=== PATIENT | male | born 1970 | race Caucasian/White ===

== ENCOUNTER 2025-02-15 08:48 | Outpatient (AMB) | payer OTHER, SELFPAY ==
--- NOTE | 2025-02-15 08:50 | A.OFFVIS_ITS ---
Intake Visit Reasons: 4 weeks f/u Allergies No Known Allergies Allergy (Verified 02/14/25 11:03) Medication List - Last Reconciled 02/15/25 by Inna Rivera MD amlodipine 10 mg PO DAILY lisinopril 10 mg PO DAILY multivitamin (Daily-Parth tablet) 1 tab PO DAILY propranolol 20 mg PO BID HPI Comments Details: 54 years old man with hypertension and benign essential tremor. Last time amlodipine was stopped and he was advised to try propranolol for both conditions. He was feeling better after the switch and tremor was better. He was able to hold a drink without spilling. No side effects. [facility] Medical History (Updated 02/15/25 @ 08:52 by Inna Rivera MD) Hypertension Familial tremor Family History (Updated 02/14/25 @ 11:02 by Yanna Sheffield MA) Son Tremor Review of Systems Const Details: Constitutional:?No fever, chills, fatigue, weight loss, or night sweats. HEENT:?No headache, vision changes, hearing loss, nasal congestion, sore throat. Neurological:? Complain of tremor Psychiatric:?No anxiety, depression, mood swings, sleep disturbance, or hallucinations. Endocrine:?No heat/cold intolerance, polydipsia, polyuria, or hair/skin changes. Hematologic/Lymphatic:?No easy bruising, bleeding, or lymphadenopathy. Integumentary (Skin):?No rash, lesions, itching, or color changes. He was also complaining of erectile difficulties but that head started even before starting propranolol. ? Physical Exam Neuro Other: Mental Status: Alert and oriented to person, place, and time. Normal attention. Normal spontaneous speech, fluency, and comprehension. No obvious issues with mood and memory. Affect is appropriate. Cranial Nerves: CN II: Visual gallo full to confrontation, visual acuity intact. CN III, IV, : Pupils equal, round, reactive to light and accommodation. Extraocular movements are normal. CN V: Facial sensation is normal. CN VII: Facial movements symmetrical. CN VIII: Hearing intact to bedside conversation is normal. CN IX, X: Palate elevates symmetrically. CN XI: Shoulder shrug and head turn symmetrical. CN XII: Tongue midline without atrophy or fasciculations. Extrapyramidal: Mild hand tremor Speech: Normal; no dysarthria or tremor. Assessment & Plan Assessment & Plan (1) Benign essential tremor: Code(s): G25.0 - Essential tremor Category: Medical Plan Impression: Benign essential tremor Recommendations: Continue propranolol 20 mg twice a day. Medications: New propranolol 20 mg PO BID 180 tabs 1RF Coding Level of Care Code Est Pt Level 4 (29054) Diagnoses Benign essential tremor G25.0
--- OUTSIDE RECORDS SUMMARY | 2025-02-15 09:01 | XMS_ITS | Clinical Summary ---
Author Organization [facility] Address [address] [place] [address] Phone Care Team Providers Care Children'S Attendant Name Role Phone Gonzalo Valentin MD Primary Care Provider Allergies Active Allergy Reactions Criticality Noted Date Comments Lisinopril Cough 10/28/2024 Poison Angie Extract Medium 12/03/2016 Medications Lactobacillus acidophilus (PROBIOTIC ACIDOPHILUS ORAL) Take by mouth daily. Active propranoloL (INDERAL) 20 mg tablet 02/01/20 Active multivitamin (Multiple Vitamins) tablet Take 1 tablet by mouth 1 (one) time each day. 360 each 02/04/20 25 2025 Active multivitamin (MULTIPLE VITAMINS ORAL) Take by mouth. 2024 Discontinued(R eorder) polyethylene glycol (Golytely) 236-22.74-6.74 -5.86 gram solution Take 4L by mouth once for one dose. May substitue any PEG. Starting at 6PM the night before your procedure drink 1 8oz glasses at your own pace until you complete half of the gallon. Finish 2nd half of the gallon 5 hours before your procedure. 4000 mL 08/15/19 25 2024 Discontinued bisacodyL (DULCOLAX) 5 mg EC tablet Take 2 tablets by mouth right before beginning bowel prep. See instructions provided by the office 2 tablet 08/15/19 25 2024 Discontinued amLODIPine (NORVASC) 10 mg tablet Take 1 tablet (10 mg total) by mouth 1 (one) time each day. 90 each 10/29/19 25 2024 Discontinued amLODIPine (NORVASC) 10 mg tablet TAKE 1 TABLET BY MOUTH 1 TIME EACH DAY. 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 Diagnostic study at [facility] Center is pending Encounters Date Type Department Care Team Description 02/03/2025 8:45 AM EDT Office Visit Adult Medicine [address] [phone] Gonzalo Valentin MD Primary hypertension (Primary Dx); Obesity (BMI 30-39.9); Hyperlipidemia, unspecified hyperlipidemia type; Essential tremor; Erectile dysfunction, unspecified erectile dysfunction type from Last 3 Months Immunizations Name Administration Dates Next Due Influenza Quadravalent, MDCK , 0.5ml, preservative free (Flucelvax) 6mo and older 05/24/2020 Tdap Tetanus diptheria acell ular pertussis (Boostrix; Adacel) 7yo and older 12/03/2016 Surgical History Surgery Date Site/Laterality Comments EYE SURGERY PROCEDURE: HISTORICAL EYE SURGERY Medical History Medical History Date Comments Tremors of nervous system DX:Cas mors of nervous system Obesity (BMI 30-39.9) 12/16/2017 DX:Obesity (BMI 30-39.9) Snoring 02/12/2017 DX:Snoring; COMM ENT: 02/09/2017 Home Sleep Study did not reveal sleep apnea. Diagnostic study at Sleep Center is pending Family hx of prostate cancer DX: Family hx of prostate cancer External hemorrhoid DX:External hemorrhoid Kidney stone DX:Kidney stone Family History Medical History Relation Name Comments Alzheimer's disease Father Prostate cancer Maternal Grandfather Lymphoma Maternal Grandmother Breast cancer Mother Alzheimer's disease Paternal Grandfather Heart attack Paternal Grandfather Lung cancer Paternal Grandmother smoker Other: esophageal cancer Paternal Grandmother No Known Problems Sister Relation Name Status Comments Father Alive Maternal Grandfather Maternal Grandmother Mother Alive Paternal Grandfather Paternal Grandmother Sister Alive Social History Tobacco Use Types Packs/Day Years Used Date Smoking Tobacco: Never Smokeless Tobacco: Never Tobacco Cessation:Counseling Given: Not Answered Alcohol Use Standard Drinks/Week Comments Yes 0 (1 standard drink = 0.6 oz pur e alcohol) Interpersonal Safety Answer Date Record ed Physical Abuse 08/16/2024 Verbal Abuse 08/16/2024 Sex and Gender Information Value Date Recorded Sex Assigned at Male 08/15/2024 1:38 PM EST Legal Sex Male 5:33 AM EST Gender Identity Male 08/15/2024 1:38 PM EST Sexual Orientation Straight 08/15/2024 1: 38 PM EST Obstetrics History Last Filed Vital Signs Vital Sign Reading Time Taken Comments Blood Pressure 138/86 02/03/2025 8:42 AM EDT Pulse 80 02/03/2025 8:42 AM EDT Temperature 36.6 C (97.8 F) 02/03/2025 8:42 AM EDT Respiratory Rate 16 02/03/2025 8:42 AM EDT Oxygen Saturation 97% 08/16/2024 11:33 AM EST Inhaled Oxygen Concentration - - Weight 110 kg (242 lb) 02/03/2025 8:42 AM EDT Height 177.8 cm (5' 10 ) 02/03/2025 8:42 AM EDT Body Mass Index 34.72 02/03/2025 8:42 AM EDT Plan of Treatment Upcoming Encounters Date Type Department Care Team (Late st Contact Info) Description 06/07/2025 10:00 AM EDT Office Visit [place] [facility] [place] [address] [place] [phone] Gonzalo Valentin MD [address] [facility] [place] [address] Health Maintenance Due Date Last Done Comments Hepatitis B Vaccines (1 of 3 - 19+ 3-dose series) 11/25/1991 Depression Screening 07/19/2022 HIV Screening 07/19/2022 Social Influencers of Health Screening 07/19/2022 Pneumococcal Vaccine: 50+ Years (1 of 1 - PCV) 2022 Zoster Vaccines (1 of 2) 2022 COVID-19 Vaccine ( - 2023-2 5 season) 2024 Influenza Vaccine (#1) 2025 05/24/2020 Hypertension/CHF/CAD Annual BMP Blood Test 11/04/2025 11/04/2024, 06/29/2023 DTaP,Tdap,and Td Vaccines (3 - Td or Tdap) 12/03/2026 12/03/2016, 04/08/2007 Colorectal Cancer Screening: Colonoscopy 08/16/2029 08/16/2024 Cholesterol Screening (Lipid Panel) 02/07/2030 02/07/2025, 11/04/2024, 12/25/2022 Hepatitis C Screening Completed 12/25/2022 HIB Vaccines Aged Out No longer eligi ble based on patient's age to complete this topic HPV Vaccines Aged Out No longer eligi ble based on patient's age to complete this topic Hepatitis A Vaccines Aged Out No long er eligible based on patient's age to complete this topic IPV Vaccines Aged Out No longer eligi ble based on patient's age to complete this topic MMR Vaccines Aged Out No longer eligi ble based on patient's age to complete this topic Meningococcal ACWY Vaccine Aged Out N o longer eligible based on patient's age to complete this topic Meningococcal B Vaccine Aged Out No l onger eligible based on patient's age to complete this topic RSV Immunization Patients Under 20 months Aged Out No longer eligible b ased on patient's age to complete this topic Varicella Vaccines Aged Out No longer eligible based on patient's age to complete this topic Procedures Procedure Name Priority Date/Time Associated Diagnosis Comments LIPID PANEL WITH REFLEX TO DIRECT LDL Routine 02/07/2025 8:05 AM EDT Hyperlipidemia, unspecified hyperlipidemia type TESTOSTERONE FREE, BIOAVAILABLE AND TOTAL Routine 02/07/2025 8:05 AM EDT Erectile dysfunction, unspecified erectile dysfunction type COMPREHENSIVE METABOLIC PANEL Routine 11/04/2024 8:42 AM EDT Primary hypertension COLONOSCOPY Routine 08/16/2024 11:12 AM EST Encounter for screening for malignant neoplasm of colon HEPATITIS C SCREENING Routine 12/25/2022 from Last 3 Months or Most Recently Relevant to Health Maintenance Results * (ABNORMAL) Lipid panel with reflex to direct LDL (02/07/2025 8:05 AM EDT) Cholesterol 205(H) 0 - 200 mg/dL LAB CHEMISTRY METHOD 02/07/2025 11:42 AM [facility] Triglycerides 97 0 - 150 mg/dL LAB CHEMISTRY METHOD 02/07/2025 11:42 AM [facility] HDL 43 >=40 mg/dL LAB CHEMISTRY METHOD 02/07/2025 11:42 AM [facility] LDL Calculated 143(H) 0 - 100 mg/dL LAB CHEMISTRY METHOD 02/07/2025 11:42 AM [facility] VLDL Cholesterol Vic 19.4 mg/dL LAB CHEMISTRY METHOD 02/07/2025 11:42 AM [facility] Non HDL Chol. (LDL+VLDL) 162(H) <145 mg/dL LAB CHEMISTRY METHOD 02/07/2025 11:42 AM [facility] Chol/HDL Ratio 4.8(H) 0.0 - 4.4 LAB CHEMISTRY METHOD 02/07/2025 11:42 AM [facility] Blood Venous blood specimen / Unknown Venipuncture / Unknown 02/07/2025 8:05 AM EDT 02/07/2025 8:05 AM EDT Gonzalo Valentin MD LAB BLOOD ORDERABLES Final Result [facility] [address] [place] [address], [place] [phone] * Testosterone free, bioavailable and total (02/07/2025 8:05 AM EDT) [facility] Signature Testosterone 573 229 - 902 ng/dL LAB CHEMISTRY METHOD 02/07/2025 12:37 PM EDT [facility] Testosterone, Free 10.8 4.6 - 22.4 ng/dL LAB CHEMISTRY METHOD 02/07/2025 12:37 PM EDT [facility] Testosterone, Bioavailable 225 110 - 575 ng/dL LAB CHEMISTRY METHOD 02/07/2025 12:37 PM EDT [facility] Sex Hormone Binding 44.2 See Comment nmol/L LAB CHEMISTRY METHOD 02/07/2025 12:37 PM EDT [facility] Comment: FEMALES: pre-menopausal 10.8 - >180 post-menopausal 23.2 - 159.1 MALES: 21-49 years 14.6 - 94.6 50-89 years 21.6 - 113.1 CHILDREN: No established reference range Over the counter supplements containing high doses of biotin may interfere with this assay. If interference is suspected, patients should be retested after refraining from biotin supplements for 72 hours. Albumin 3.8 3.2 - 5.0 g/dL LAB CHEMISTRY METHOD 02/07/2025 12:37 PM EDT [facility] Blood Venous blood specimen / Unknown Venipuncture / Unknown 02/07/2025 8:05 AM EDT 02/07/2025 8:05 AM EDT us Gonzalo Valentin MD LAB BLOOD ORDERABLES Final Result [facility] [address] [place] [address], * (ABNORMAL) Comprehensive metabolic panel (11/04/2024 8:42 AM EDT) Sodium 141 133 - 145 mmol/L LAB CHEMISTRY METHOD 11/04/2024 1:22 PM EDT [facility] Potassium 4.1 3.5 - 5.5 mmol/L LAB CHEMISTRY METHOD 11/04/2024 1:22 PM EDT [facility] Chloride 110 96 - 110 mmol/L LAB CHEMISTRY METHOD 11/04/2024 1:22 PM [facility] CO2 22 21 - 32 mmol/L LAB CHEMISTRY METHOD 11/04/2024 1:22 PM [facility] Anion Gap 9 3 - 11 LAB CHEMISTRY METHOD 11/04/2024 1:22 PM [facility] Glucose 105(H) 70 - 100 mg/dL LAB CHEMISTRY METHOD 11/04/2024 1:22 PM [facility] BUN 13 5 - 25 mg/dL LAB CHEMISTRY METHOD 11/04/2024 1:22 PM [facility] Creatinine 0.74 0.70 - 1.30 mg/dL LAB CHEMISTRY METHOD [facility]/04[facility]24 [facility] e[facility] 110 >=60 mL/min/1. 73m2 LAB CHEMISTRY METHOD 11/04/2024 1:22 PM [facility] Comment:Calculation based on the Chronic Kidney Disease Epidemiology Collaboration (CKD-EPI) equation refit without adjustment for race. BUN/Creatinine Ratio 17.6 LAB CHEMISTRY METHOD 11/04/2024 1:22 PM [facility] Calcium 10.2 8.5 - 10.5 mg/dL LAB CHEMISTRY METHOD 11/04/2024 1:22 PM [facility] AST (SGOT) 19 10 - 42 unit/L LAB CHEMISTRY METHOD 11/04/2024 1:22 PM EDT [facility] ALT (SGPT) 33 10 - 60 unit/L LAB CHEMISTRY METHOD 11/04/2024 1:22 PM EDT [facility] Alkaline Phosphatase 85 42 - 121 unit/L LAB CHEMISTRY METHOD 11/04/2024 1:22 PM EDT [facility] Total Protein 7.1 6.0 - 8.0 g/dL LAB CHEMISTRY METHOD 11/04/2024 1:22 PM EDT [facility] Albumin 4.0 3.2 - 5.0 g/dL LAB CHEMISTRY METHOD 11/04/2024 1:22 PM EDT [facility] Total Bilirubin 1.0 0.0 - 1.4 mg/dL LAB CHEMISTRY METHOD 11/04/2024 1:22 PM EDT [facility] Blood Venous blood specimen / Unknown Venipuncture / Unknown 11/04/2024 8:42 AM EDT 11/04/2024 8:46 AM EDT us Gonzalo Valentin MD LAB BLOOD ORDERABLES Final Result [facility] [address] [place] [address], * COLONOSCOPY [place]est[place] [facility] [place] [facility] ENDOSCOPY (08/16/2024 11:12 AM EST) Anatomical Region Laterality Modality Endoscopy 08/16/2024 10:5 6 AM EST Impressions 08/16/2024 11:20 AM EST - One 5 mm polyp in the cecum, removed with a cold snare. Resected and retrieved. - Diverticulosis in the sigmoid colon and in the descending colon. - Internal hemorrhoids. Recommendation: - Await pathology results. - Repeat colonoscopy in 5 years for surveillance. Narrative 08/16/2024 11:20 AM EST [facility] GI Patient Name: Yue Dorsey Procedure Date: 08/16/2024 10:56 AM Date of : 1970 Age: 53 Gender: Male Note Status: Finalized Attending MD: Radha Betancourt MD, Procedure Date No Time: 08/16/2024 Procedure: Colonoscopy Indications: Screening for colorectal malignant neoplasm Providers: Radha Betancourt MD Referring MD: Radha Betancourt MD Medicines: Monitored Anesthesia Care Complications: No immediate complications. Estimated blood loss: Minimal. Estimated Blood Loss: Estimated blood loss was minimal. Procedure: Pre-Anesthesia Assessment: - Prior to the procedure, a History and Physical was performed, and patient medications and allergies were reviewed. The patient is competent. The risks and benefits of the procedure and the sedation options and risks were discussed with the patient. All questions were answered and informed consent was obtained. Patient identification and proposed procedure were verified by the physician, the nurse, the credit compliance officer and the personnel technician in the pre-procedure area in the endoscopy suite. Mental Status Examination: alert and oriented. Airway Examination: normal oropharyngeal airway and neck mobility. Respiratory Examination: clear to auscultation. CV Examination: normal. Prophylactic Antibiotics: The patient does not require prophylactic antibiotics. Prior Anticoagulants: The patient has taken no anticoagulant or antiplatelet agents. ASA Grade Assessment: II - A patient with mild systemic disease. After reviewing the risks and benefits, the patient was deemed in satisfactory condition to undergo the procedure. The anesthesia plan was to use monitored anesthesia care (MAC). Immediately prior to administration of medications, the patient was re-assessed for adequacy to receive sedatives. The heart rate, respiratory rate, oxygen saturations, blood pressure, adequacy of pulmonary ventilation, and response to care were monitored throughout the procedure. The physical status of the patient was re-assessed after the procedure. After I obtained informed consent, the scope was passed under direct vision. Throughout the procedure, the patient's blood pressure, pulse, and oxygen saturations were monitored continuously. The Colonoscope was introduced through the anus and advanced to the cecum, identified by appendiceal orifice and ileocecal valve. The colonoscopy was performed without difficulty. The patient tolerated the procedure well. The quality of the bowel preparation was good. Findings: The perianal and digital rectal examinations were normal. A 5 mm polyp was found in the cecum. The polyp was sessile. The polyp was removed with a cold snare. Resection and retrieval were complete. Estimated blood loss was minimal. Multiple small and large-mouthed diverticula were found in the sigmoid colon and descending colon. Internal hemorrhoids were found during retroflexion. The hemorrhoids were Grade I (internal hemorrhoids that do not prolapse) and Grade II (internal hemorrhoids that prolapse but reduce spontaneously). Procedure Code(s): --- Professional --- 90434, Colonoscopy, flexible; with removal of tumor(s), polyp(s), or other lesion(s) by snare technique Diagnosis Code(s): --- Professional --- D12.0, Benign neoplasm of cecum CPT copyright 2020 [employer]. All rights reserved. The codes documented in this report are preliminary and upon jd edwards review may be revised to meet current compliance requirements. Radha Betancourt MD 08/16/2024 11:20:22 AM This report has been signed electronically.Radha Betancourt MD Number of Addenda: 0 Note Initiated On: 08/16/2024 10:56 AM Scope Withdrawal Time: 0 hours 9 minutes 48 seconds Scope In: 11:00:07 AM Scope Out: 11:12:06 AM Endoscopy Department at [facility] - [address] [place] [phone] Procedure Note Radha Betancourt MD - 08/16/2024 [facility] GI Patient Name: Yue Dorsey Procedure Date: 08/16/2024 10:56 AM Date of : 1970 Age: 53 Gender: Male Note Status: Finalized Attending MD: Radha Betancourt MD, Procedure Date No Time: 08/16/2024 Procedure: Colonoscopy Indications: Screening for colorectal malignant neoplasm Providers: Radha Betancourt MD Referring MD: Radha Betancourt MD Medicines: Monitored Anesthesia Care Complications: No immediate complications. Estimated blood loss: Minimal. Estimated Blood Loss: Estimated blood loss was minimal. Procedure: Pre-Anesthesia Assessment: - Prior to the procedure, a History and Physicalwas performed, and patient medications and allergieswere reviewed. The patient is competent. The risks and benefits of the procedure and the sedation optionsand risks were discussed with the patient. Allquestions were answered and informed consent was obtained. Patient identification and proposed procedure were verified by the physician, the nurse, theanesthetist and the personnel technician in the pre-procedure area in the endoscopy suite. Mental Status Examination: alertand oriented. Airway Examination: normal oropharyngeal airway and neck mobility. Respiratory Examination: clear to auscultation. CV Examination: normal. Prophylactic Antibiotics: The patient does notrequire prophylactic antibiotics. Prior Anticoagulants: The patient has taken no anticoagulant or antiplatelet agents. ASA Grade Assessment: II - A patient withmild systemic disease. After reviewing the risks and benefits, the patient was deemed in satisfactory condition to undergo the procedure. The anesthesia plan was to use monitored anesthesia care (MAC). Immediately prior to administration of medications, the patient was re-assessed for adequacy to receive sedatives. The heart rate, respiratory rate, oxygen saturations, blood pressure, adequacy of pulmonary ventilation, and response to care were monitored throughout the procedure. The physical status ofthe patient was re-assessed after the procedure. After I obtained informed consent, the scope was passed under direct vision. Throughout theprocedure, the patient's blood pressure, pulse, and oxygen saturations were monitored continuously. The Colonoscope was introduced through the anus and advanced to the cecum, identified by appendiceal orifice and ileocecal valve. The colonoscopy was performed without difficulty. The patient tolerated the procedure well. The quality of the bowel preparation was good. Findings: The perianal and digital rectal examinations were normal. A 5 mm polyp was found in the cecum. The polyp was sessile. The polyp was removed with a cold snare. Resection and retrieval were complete. Estimatedblood loss was minimal. Multiple small and large-mouthed diverticula were found in the sigmoid colon and descending colon. Internal hemorrhoids were found duringretroflexion. The hemorrhoids were Grade I (internal hemorrhoids that do not prolapse) and Grade II (internal hemorrhoids that prolapse but reducespontaneously). Procedure Code(s): --- Professional --- 23929, Colonoscopy, flexible; with removal of tumor(s), polyp(s), or other lesion(s) by snare technique Diagnosis Code(s): --- Professional --- D12.0, Benign neoplasm of cecum CPT copyright 2020 [employer]. All rights reserved. The codes documented in this report are preliminary and upon jd edwards reviewmay be revised to meet current compliance requirements. Radha Betancourt MD 08/16/2024 11:20:22 AM This report has been signed electronically.Radha Betancourt MD Number of Addenda: 0 Note Initiated On: 08/16/2024 10:56 AM Scope Withdrawal Time: 0 hours 9 minutes 48 seconds Scope In: 11:00:07 AM Scope Out: 11:12:06 AM Endoscopy Department at [facility] - [address] [place] [phone] IMPRESSION: - One 5 mm polyp in the cecum, removed with a cold snare. Resected and retrieved. - Diverticulosis in the sigmoid colon and in the descending colon. - Internal hemorrhoids. Recommendation: - Await pathology results. - Repeat colonoscopy in 5 years for surveillance. Radha Betancourt MD GI~PROCEDURE ORDERABLES Fin al Result * Hepatitis C Screening (12/25/2022) Hepatitis C Screening Abstracted Historical Provider HEALTH MAINTENANCE Final Result from Last 3 Months or Most Recently Relevant to Health [place] [phone] [facility] Care Teams Children'S Attendant Relationship Specialty Start Date End Date Gonzalo Valentin MD [address] [place] [address] [place] [address] PCP - General 03/01/24
== END 2025-02-15 09:02 | disposition home or self-care (01) ==
LOC: HO.HSM 08:48
PROVIDERS: PCP Student in an Organized Health Care Education/Training Program; Visit Provider Psychiatry & Neurology Neurology
DX: G25.0 Essential tremor (principal)
CPT/HCPCS: 99213